=== PATIENT | female | born 1970 | race Caucasian/White ===

== ENCOUNTER 2017-07-08 19:18 | Emergency (ER) | payer OTHER, MEDICAID ==
[2017-07-08 19:56] LABS: BASOPHIL % 0.5 % (0-2); PLATELET COUNT 259 x10^3mcL (130-400); RED CELL DISTRIBUTION WIDTH 13.9 % (11.5-14.5)
[2017-07-08 20:03] LABS: CARBON DIOXIDE 25.9 mmol/L (21-32); CHLORIDE SERUM 107 mmol/L (98-107); CREATININE SERUM 0.5 mg/dL (0.6-1.0); GFR1 > 60 mL/min; GLUCOSE SERUM 95 mg/dL (74-106); POTASSIUM SERUM 3.7 mmol/L (3.5-5.1); SODIUM SERUM 142 mmol/L (136-145)
[2017-07-08 20:07] LABS: ALKALINE PHOSPHATASE 84 U/L (46-116); ALT/SGPT 23 U/L (14-59); AST/SGOT 20 U/L (15-37); BILIRUBIN TOTAL 0.35 mg/dL (0.20-1.00); LIPASE 329 IU/L (73-393); TOTAL PROTEIN, SERUM 7.6 g/dL (6.4-8.2)
[2017-07-08 20:27] LABS: microscopic required? NO
[2017-07-08 20:34] LABS: UA SPECIFIC GRAVITY 1.025 (1.005-1.035); urine erythrocyte NEGATIVE (NEGATIVE)
[2017-07-08 21:21] VITALS: BP 133/88
== END 2017-07-08 21:21 | disposition home or self-care (01) ==
LOC: ED 19:18
PROVIDERS: Emergency Medicine
DX: K80.20 Calculus of gallbladder without cholecystitis without obstruction (principal); M79.1 Myalgia; N64.4 Mastodynia; R07.89 Other chest pain
CPT/HCPCS: 83880; J1885; J2270; J2405; Q0092

== ENCOUNTER 2018-04-18 18:26 | Emergency (ER) | payer OTHER, MEDICAID ==
[~2018-04-18] VITALS: Ht 144.8 cm; Wt 59.4 kg
[2018-04-18 18:55] VITALS: Ht 144.8 cm; Wt 59.4 kg
[2018-04-18 20:28] LABS: microscopic required? YES; urine erythrocyte NEGATIVE (NEGATIVE)
[2018-04-18 20:29] LABS: BASOPHIL % 0.1 % (0-2); PLATELET COUNT 261 x10^3mcL (130-400); RED CELL DISTRIBUTION WIDTH 13.6 % (11.5-14.5)
[2018-04-18 20:38] LABS: CARBON DIOXIDE 26.6 mmol/L (21-32); CHLORIDE SERUM 108 mmol/L (98-107); CREATININE SERUM 0.4 mg/dL (0.6-1.0); GFR1 > 60 mL/min; GLUCOSE SERUM 90 mg/dL (74-106); POTASSIUM SERUM 4.2 mmol/L (3.5-5.1); SODIUM SERUM 144 mmol/L (136-145)
[2018-04-18 20:42] LABS: ALBUMIN 4.2 g/dL (3.4-5.0); ALKALINE PHOSPHATASE 94 U/L (46-116); ALT/SGPT 13 U/L (14-59); AST/SGOT 19 U/L (15-37); BILIRUBIN TOTAL 0.46 mg/dL (0.20-1.00); TOTAL PROTEIN, SERUM 7.9 g/dL (6.4-8.2)
[2018-04-18 22:10] VITALS: BP 122/69
== END 2018-04-18 22:10 | disposition home or self-care (01) ==
LOC: ED 18:26
PROVIDERS: Emergency Medicine
DX: N39.0 Urinary tract infection, site not specified (principal)
CPT/HCPCS: J1885; J7030

== ENCOUNTER 2018-04-24 22:36 | Emergency (ER) | payer OTHER, MEDICAID ==
[~2018-04-24] VITALS: Ht 165.1 cm; Wt 66.7 kg
[2018-04-24 22:52] VITALS: Ht 165.1 cm; Wt 66.7 kg
[2018-04-25 00:21] LABS: microscopic required? NO
[2018-04-25 01:34] LABS: BASOPHIL % 0.2 % (0-2); PLATELET COUNT 246 x10^3mcL (130-400); RED CELL DISTRIBUTION WIDTH 13.7 % (11.5-14.5)
[2018-04-25 01:45] LABS: UA SPECIFIC GRAVITY 1.025 (1.005-1.035); urine erythrocyte NEGATIVE (NEGATIVE)
[2018-04-25 02:45] LABS: CALCIUM 9.4 mg/dL (8.5-10.1); CARBON DIOXIDE 30.2 mmol/L (21-32); CHLORIDE SERUM 106 mmol/L (98-107); CREATININE SERUM 0.5 mg/dL (0.6-1.0); GFR1 > 60 mL/min; GLUCOSE SERUM 89 mg/dL (74-106); POTASSIUM SERUM 4.1 mmol/L (3.5-5.1); SODIUM SERUM 142 mmol/L (136-145)
[2018-04-25 03:01] LABS: ALBUMIN 3.9 g/dL (3.4-5.0); ALKALINE PHOSPHATASE 84 U/L (46-116); ALT/SGPT 14 U/L (14-59); AST/SGOT 13 U/L (15-37); BILIRUBIN TOTAL 0.28 mg/dL (0.20-1.00); TOTAL PROTEIN, SERUM 7.4 g/dL (6.4-8.2)
[2018-04-25 03:42] VITALS: BP 128/86
== END 2018-04-25 03:42 | disposition home or self-care (01) ==
LOC: ED 22:36
PROVIDERS: Emergency Medicine
DX: D21.9 Benign neoplasm of connective and other soft tissue, unspecified (principal); N39.0 Urinary tract infection, site not specified
CPT/HCPCS: J1885

== ENCOUNTER 2019-06-22 19:15 | Emergency (ER) | payer MEDICAID ==
[~2019-06-22] VITALS: Ht 160 cm; Wt 61.9 kg
[2019-06-22 19:39] VITALS: Ht 160 cm; Wt 61.9 kg
[2019-06-22 21:57] LABS: CALCIUM 9.1 mg/dL (8.5-10.1); CARBON DIOXIDE 24.9 mmol/L (21-32); CHLORIDE SERUM 106 mmol/L (98-107); CREATININE SERUM 0.5 mg/dL (0.6-1.0); GFR1 > 60 mL/min; GLUCOSE SERUM 84 mg/dL (74-106); POTASSIUM SERUM 3.7 mmol/L (3.5-5.1); SODIUM SERUM 143 mmol/L (136-145)
[2019-06-22 22:01] LABS: ALBUMIN 4.1 g/dL (3.4-5.0); ALKALINE PHOSPHATASE 66 U/L (46-116); ALT/SGPT 29 U/L (14-59); AST/SGOT 18 U/L (15-37); BILIRUBIN TOTAL 0.4 mg/dL (0.20-1.00); TOTAL PROTEIN, SERUM 7.5 g/dL (6.4-8.2)
[2019-06-22 22:44] VITALS: BP 140/89
== END 2019-06-22 22:44 | disposition home or self-care (01) ==
LOC: ED 19:15
PROVIDERS: Emergency Medicine
DX: H92.03 Otalgia, bilateral (principal); M79.10 Myalgia, unspecified site; R03.0 Elevated blood-pressure reading, without diagnosis of hypertension; Z87.442 Personal history of urinary calculi
CPT/HCPCS: 36415; J1885

== ENCOUNTER 2020-11-01 05:36 | Emergency (ER) | payer MEDICAID, SELFPAY ==
[~2020-11-01] VITALS: Ht 157.5 cm; Wt 59.0 kg
[2020-11-01 06:07] VITALS: BP 149/100; Ht 157.5 cm; Wt 59.0 kg
== END 2020-11-01 09:09 | disposition home or self-care (01) ==
LOC: ED 05:36
DX: J40 Bronchitis, not specified as acute or chronic (principal); M79.10 Myalgia, unspecified site; Z87.442 Personal history of urinary calculi